=== PATIENT | female | born 1980 | race Caucasian/White ===

== ENCOUNTER 2018-07-08 09:02 | Outpatient (CLI) | payer OTHER | END 2018-07-08 09:17 | disposition home or self-care (01) | LOC: MAMO-SONO 09:02 | DX: Z12.31 Encounter for screening mammogram for malignant neoplasm of breast (principal); N60.11 Diffuse cystic mastopathy of right breast; N60.12 Diffuse cystic mastopathy of left breast ==

== ENCOUNTER 2021-01-06 13:28 | Outpatient (CLI) | payer OTHER | END 2021-01-06 13:48 | disposition home or self-care (01) | LOC: SONOGRAMA 13:28 → MAMO-SONO 13:28 | PROVIDERS: ATTEND Specialist | DX: N64.89 Other specified disorders of breast (principal); N60.11 Diffuse cystic mastopathy of right breast; N60.12 Diffuse cystic mastopathy of left breast ==

== ENCOUNTER 2022-03-24 09:16 | Outpatient (CLI) | payer OTHER | END 2022-03-24 09:44 | disposition home or self-care (01) | LOC: MAMO-SONO 09:16 | PROVIDERS: ATTEND Specialist | DX: N60.11 Diffuse cystic mastopathy of right breast (principal); N60.12 Diffuse cystic mastopathy of left breast ==

== ENCOUNTER 2022-04-15 16:15 | Emergency (ER) | payer OTHER ==
[~2022-04-15] VITALS: Ht 160 cm; Wt 52.2 kg
[2022-04-15] MEDS ORDERED: ZESTRIL10 M1 (16:35)
[2022-04-15] MEDS ORDERED: PEPCID AC20 MG PO (20:33)
[2022-04-15] MEDS ORDERED: CIPRO500 MG PO (20:33)
[2022-04-15] MEDS ORDERED: PROBIOTIC1 EAC2 PO (20:33)
[2022-04-15] MEDS ORDERED: LEVSIN/SL0.125 MG SL (20:56)
== END 2022-04-15 21:05 | disposition home or self-care (01) ==
LOC: ER 16:15
DX: R19.7 Diarrhea, unspecified (principal)

== ENCOUNTER 2022-04-23 09:18 | Outpatient (CLI) | payer OTHER ==
[~2022-04-23 09:18] MED LIST: CIPRO500 MG PO; LEVSIN/SL0.125 MG SL; PEPCID AC20 MG PO; PROBIOTIC1 EAC2 PO; ZESTRIL10 M1
== END 2022-04-23 09:29 | disposition home or self-care (01) ==
LOC: TOM 09:18
PROVIDERS: ATTEND Internal Medicine Gastroenterology
DX: R10.32 Left lower quadrant pain (principal)

== ENCOUNTER 2023-06-03 09:40 | Outpatient (CLI) | payer OTHER | END 2023-06-03 09:44 | disposition home or self-care (01) | LOC: MAMO-SONO 09:40 | PROVIDERS: ATTEND Specialist | DX: N60.11 Diffuse cystic mastopathy of right breast (principal); N60.12 Diffuse cystic mastopathy of left breast ==

== ENCOUNTER 2024-07-03 11:03 | Outpatient (CLI) | payer OTHER | END 2024-07-03 11:13 | disposition home or self-care (01) | LOC: MAMO-SONO 11:03 | PROVIDERS: ATTEND Specialist | DX: N60.11 Diffuse cystic mastopathy of right breast (principal); N60.12 Diffuse cystic mastopathy of left breast ==

== ENCOUNTER 2025-02-09 08:15 | Outpatient (CLI) | payer OTHER | END 2025-02-09 08:24 | disposition home or self-care (01) | LOC: SONOGRAMA 08:15 | PROVIDERS: ATTEND Internal Medicine Nephrology | DX: N18.2 Chronic kidney disease, stage 2 (mild) (principal); N39.41 Urge incontinence ==